=== PATIENT | male | born 1965 | race Caucasian/White ===

== ENCOUNTER 2019-06-01 10:59 | Emergency (ER) | payer OTHER ==
[~2019-06-01 10:59] MED LIST: Sodium Chloride Irrig Solution 250 ML BOT ONE
[2019-06-01] MEDS ORDERED: Iopamidol 370 76% 100 ML VIAL ONE (11:00)
[2019-06-01 11:55] LABS: #Lymphocytes 1.5 thou/uL (1.20-3.40); #Monocytes 1.1 thou/uL (0.11-0.59); %Basophils 0.4 % (0.0-1.0); %Eosinophils 0.4 % (0.0-10.0); %Lymphocytes 13.9 % (21.0-51.0); %Monocytes 10.3 % (0.0-10.0); Hemoglobin 15.4 g/dL (14.0-18.0); Mean Corpuscular HGB CONC 31.6 g/dL (32.0-36.0); Mean Corpuscular Hemoglobin 30.6 pg (27.0-31.0); Mean Corpuscular Volume 96.8 fL (78.0-98.0); Platelet Count 181 thou/uL (130-400); Red Blood Cell (RBC) Count 5.04 mill/uL (4.70-6.10); White Blood Cell (WBC) Count 10.7 thou/uL (4.8-10.8)
[2019-06-01] MEDS ORDERED: Adacel (T-DAP) 0.5 ML SYRINGE ONE (12:01)
[2019-06-01] MEDS ORDERED: Acetaminophen 500 MG TAB ONE (12:01)
[2019-06-01 12:04] LABS: PTT 31.4 SEC (22.9-36.1); Prothrombin Time 12.8 SEC (12.0-14.7)
[2019-06-01 12:09] LABS: Anion Gap 13 mmol/L (10-20); BUN (Urea Nitrogen) 10 mg/dL (8.4-25.7); Calc. Creatinine Clearance 0 mL/min (70-130); Calcium 9.5 mg/dL (7.8-10.44); Carbon Dioxide 26 mmol/L (22-29); Chloride 105 mmol/L (98-107); Estimated GFR-MDRD Greater than 90; Glucose 83 mg/dL (70-105); Potassium 4.3 mmol/L (3.5-5.1); Sodium 140 mmol/L (136-145)
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
[2019-06-01] MEDS ORDERED: Morphine 4 MG/ML VIAL ONE (12:42)
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
== END 2019-06-01 13:25 | disposition short-term general hospital (02) ==
LOC: MADERS 10:59
DX: S36.032A Major laceration of spleen, initial encounter (principal); S60.211A Contusion of right wrist, initial encounter; S05.11XA Contusion of eyeball and orbital tissues, right eye, initial encounter; M19.90 Unspecified osteoarthritis, unspecified site; J44.9 Chronic obstructive pulmonary disease, unspecified; F17.210 Nicotine dependence, cigarettes, uncomplicated; I10 Essential (primary) hypertension; Z79.891 Long term (current) use of opiate analgesic; Z79.899 Other long term (current) drug therapy; Y04.0XXA Assault by unarmed brawl or fight, initial encounter
CPT/HCPCS: 70450; 71260; 74160; 80048; 83690; 85025; 85610; 85730; 90715; 96374; J2270; Q9967